=== PATIENT | male | born 1995 | race Caucasian/White ===

== ENCOUNTER 2017-03-11 18:16 | Emergency (ER) | payer OTHER ==
[~2017-03-11] VITALS: Ht 180.3 cm; Wt 81.7 kg
[~2017-03-11 18:16] MED LIST: AMOXICILLIN500 M1 PO; KEFLEX500 MG PO; MEDROL DOSPAK21 TA1 PO; NOHOMEMEDICATIONS; NORCO 5-325 TA1 EACH PO; TESSALON PERLE100 M1 PO; TRIAMCINOLONE A80 G2 TOP; ULTRAM 50MG TAB50 MG PO; ZPAK PO
[2017-03-11] MEDS ORDERED: ZOFRAN4 MG PO (18:57)
[2017-03-11 19:15] VITALS: BP 103/63
== END 2017-03-11 19:16 | disposition home or self-care (01) ==
LOC: M.ERS 18:16
DX: A08.4 Viral intestinal infection, unspecified (principal)

== ENCOUNTER 2017-10-24 09:15 | Emergency (ER) | payer OTHER ==
[~2017-10-24] VITALS: Ht 180.3 cm; Wt 85.3 kg
[~2017-10-24 09:15] MED LIST changes: +ZOFRAN4 MG PO
[2017-10-24 09:20] VITALS: BP 131/90
[2017-10-24] MEDS ORDERED: NORCO 5-325 TA1 EACH PO (09:30)
[2017-10-24] MEDS ORDERED: AMOXICILLIN 50500 MG PO (09:30)
== END 2017-10-24 09:52 | disposition home or self-care (01) ==
LOC: M.ERS 09:15
DX: K04.7 Periapical abscess without sinus (principal); F17.210 Nicotine dependence, cigarettes, uncomplicated

== ENCOUNTER 2017-11-29 22:33 | Emergency (ER) | payer OTHER ==
[~2017-11-29] VITALS: Ht 180.3 cm; Wt 86.2 kg
[~2017-11-29 22:33] MED LIST changes: +AMOXICILLIN 50500 MG PO
[2017-11-29] MEDS ORDERED: ROBAXIN500 MG PO (23:39)
[2017-11-29 23:49] VITALS: BP 116/62
== END 2017-11-29 23:51 | disposition home or self-care (01) ==
LOC: M.ERS 22:33
DX: S00.93XA Contusion of unspecified part of head, initial encounter (principal); S10.93XA Contusion of unspecified part of neck, initial encounter; F17.210 Nicotine dependence, cigarettes, uncomplicated; Y04.2XXA Assault by strike against or bumped into by another person, initial encounter; Y92.89 Other specified places as the place of occurrence of the external cause; Y93.89 Activity, other specified; Y99.8 Other external cause status

== ENCOUNTER 2018-03-08 12:03 | Emergency (ER) | payer OTHER ==
[~2018-03-08] VITALS: Ht 180.3 cm; Wt 90.7 kg
[~2018-03-08 12:03] MED LIST changes: +ROBAXIN500 MG PO
[2018-03-08 14:17] LABS: ABSOLUTE LYMPHOCYTES 0.7 thou/uL (0.8-5.3); ABSOLUTE MONOCYTES 0.5 thou/uL (0.0-1.2); ABSOLUTE NEUTROPHILS 3.3 thou/uL (1.6-8.1); BASOPHILS 0.5 %; EOSINOPHILS 0.5 %; HEMATOCRIT 44.1 % (42.0-52.0); HEMOGLOBIN 15.2 gm/dL (14.0-18.0); LYMPHOCYTES 14.8 %; MCH 30.8 pg (26.0-34.0); MCHC 34.5 g/dL (28.0-37.0); MCV 89.2 fL (80.0-100.0); MONOCYTES 11.5 %; MPV 9.6 fl. (7.2-11.1); NUCLEATED RBCS 0 /100WBC; PLATELET COUNT* 150 thou/uL (150-400); POLYS 72.7 %; RBC 4.95 mil/uL (4.50-6.00); RDW-CV 13.2 % (10.5-14.5); WBC 4.6 thou/uL (4.0-11.0)
[2018-03-08 14:20] LABS: URINE BLOOD NEGATIVE (Negative); URINE CLARITY CLEAR; URINE COLOR YELLOW; URINE GLUCOSE-RANDOM NEGATIVE (Negative); URINE LEUKOCYTES-REFLEX NEGATIVE (Negative); URINE NITRITE-REFLEX NEGATIVE (Negative); URINE PROTEIN NEGATIVE (Negative); URINE SPECIFIC GRAVITY 1.015 (1.005-1.030); URINE UROBILINOGEN 0.2 E.U./dl (0.2-1.0)
[2018-03-08 14:22] LABS: ACETEST (KETONE CONFIRMATORY) Large (Negative); ICTOTEST (BILI CONFIRMATORY) Negative (Negative); URINE BILIRUBIN 1+ (Negative); URINE KETONES 3+ (Negative)
[2018-03-08 14:35] LABS: CREATININE 1.1 mg/dL (0.6-1.3); POTASSIUM 3.3 mmol/L (3.5-5.1)
[2018-03-08 14:39] LABS: ALBUMIN 3.9 g/dL (3.4-5.0); TOTAL BILIRUBIN 1.3 mg/dL (<0.1-1.0); TOTAL PROTEIN 7.6 g/dL (6.4-8.2)
[2018-03-08] MEDS ORDERED: ZOFRAN4 MG PO (14:57)
[2018-03-08 15:05] VITALS: BP 118/60
== END 2018-03-08 15:07 | disposition home or self-care (01) ==
LOC: M.ERS 12:03
PROVIDERS: Nurse Practitioner Family
DX: R11.2 Nausea with vomiting, unspecified (principal); R19.7 Diarrhea, unspecified; R10.13 Epigastric pain; R10.84 Generalized abdominal pain; R10.33 Periumbilical pain; F17.210 Nicotine dependence, cigarettes, uncomplicated

== ENCOUNTER 2018-10-18 13:42 | Emergency (ER) | payer OTHER ==
[~2018-10-18] VITALS: Ht 182.9 cm; Wt 91.6 kg
[~2018-10-18 13:42] MED LIST changes: +NORCO 5-325 TA1 EAC1 PO
[2018-10-18 15:14] VITALS: BP 127/68
== END 2018-10-18 15:14 | disposition home or self-care (01) ==
LOC: M.ERS 13:42
DX: S62.316A Displaced fracture of base of fifth metacarpal bone, right hand, initial encounter for closed fracture (principal); F17.210 Nicotine dependence, cigarettes, uncomplicated; X58.XXXA Exposure to other specified factors, initial encounter; Y92.89 Other specified places as the place of occurrence of the external cause; Y93.89 Activity, other specified; Y99.8 Other external cause status

== ENCOUNTER 2019-03-01 14:17 | Emergency (ER) | payer OTHER ==
[~2019-03-01] VITALS: Ht 180.3 cm; Wt 90.7 kg
[2019-03-01 15:01] LABS: INFLUENZA A ANTIGEN Negative (Negative); INFLUENZA B ANTIGEN Negative (Negative)
[2019-03-01] MEDS ORDERED: KEFLEX500 M1 PO (15:17)
[2019-03-01 15:33] VITALS: BP 120/78
== END 2019-03-01 15:34 | disposition home or self-care (01) ==
LOC: M.ERS 14:17
PROVIDERS: Emergency Medicine Emergency Medical Services
DX: J02.0 Streptococcal pharyngitis (principal); F17.210 Nicotine dependence, cigarettes, uncomplicated; Z98.890 Other specified postprocedural states

== ENCOUNTER 2019-03-21 03:03 | Emergency (ER) | payer OTHER ==
[~2019-03-21] VITALS: Ht 180.3 cm; Wt 97.5 kg
[~2019-03-21 03:03] MED LIST changes: +KEFLEX500 M1 PO
[2019-03-21] MEDS ORDERED: LORCET 5-325 M1 EACH PO (03:22)
[2019-03-21] MEDS ORDERED: PENICILLIN VK250 MG PO (03:22)
[2019-03-21 03:31] VITALS: BP 150/96
== END 2019-03-21 03:33 | disposition home or self-care (01) ==
LOC: M.ERS 03:03
DX: K02.9 Dental caries, unspecified (principal); F17.210 Nicotine dependence, cigarettes, uncomplicated

== ENCOUNTER 2019-04-07 19:55 | Emergency (ER) | payer OTHER ==
[~2019-04-07] VITALS: Ht 182.9 cm; Wt 95.3 kg
[~2019-04-07 19:55] MED LIST changes: +LORCET 5-325 M1 EACH PO; +PENICILLIN VK250 MG PO
[2019-04-07] MEDS ORDERED: PENICILLIN VK250 MG PO (20:06)
[2019-04-07] MEDS ORDERED: CLEOCIN HCL150 MG PO (21:23)
[2019-04-07] MEDS ORDERED: MEDROLDOSEPACK PO (21:23)
[2019-04-07 21:58] VITALS: BP 126/71
== END 2019-04-07 21:59 | disposition home or self-care (01) ==
LOC: M.ERS 19:55
DX: J03.90 Acute tonsillitis, unspecified (principal); F17.210 Nicotine dependence, cigarettes, uncomplicated

== ENCOUNTER 2019-05-31 08:53 | Emergency (ER) | payer OTHER ==
[~2019-05-31] VITALS: Ht 182.9 cm; Wt 90.7 kg
[~2019-05-31 08:53] MED LIST changes: +CLEOCIN HCL150 MG PO; +MEDROLDOSEPACK PO
[2019-05-31 09:57] LABS: ABSOLUTE BASOPHILS 0.1 thou/uL (0.0-0.2); ABSOLUTE EOSINOPHILS 0.1 thou/uL (0.0-0.7); ABSOLUTE LYMPHOCYTES 1.9 thou/uL (0.8-5.3); ABSOLUTE MONOCYTES 0.8 thou/uL (0.0-1.2); BASOPHILS 0.7 %; EOSINOPHILS 1.7 %; HEMATOCRIT 40.1 % (42.0-52.0); LYMPHOCYTES 27.3 %; MCH 30.5 pg (26.0-34.0); MCHC 34.8 g/dL (28.0-37.0); MCV 87.8 fL (80.0-100.0); MONOCYTES 11.1 %; MPV 9.9 fl. (7.2-11.1); NUCLEATED RBCS 0 /100WBC; PLATELET COUNT* 150 thou/uL (150-400); POLYS 59.2 %; RBC 4.57 mil/uL (4.50-6.00); WBC 6.8 thou/uL (4.0-11.0)
[2019-05-31 10:04] LABS: POTASSIUM 3.6 mmol/L (3.5-5.1)
[2019-05-31 12:25] VITALS: BP 117/72
== END 2019-05-31 12:25 | disposition short-term general hospital (02) ==
LOC: M.ERS 08:53
PROVIDERS: Personal Emergency Response Attendant
DX: K04.7 Periapical abscess without sinus (principal); M27.2 Inflammatory conditions of jaws; F17.210 Nicotine dependence, cigarettes, uncomplicated

== ENCOUNTER 2019-07-19 12:20 | Emergency (ER) | payer OTHER ==
[~2019-07-19] VITALS: Ht 180.3 cm; Wt 87.1 kg
[2019-07-19] MEDS ORDERED: DOXYCYCLINE 10100 MG PO (12:58)
[2019-07-19 13:04] VITALS: BP 140/69
== END 2019-07-19 13:05 | disposition home or self-care (01) ==
LOC: M.ERS 12:20
DX: L73.9 Follicular disorder, unspecified (principal); R59.0 Localized enlarged lymph nodes; F17.210 Nicotine dependence, cigarettes, uncomplicated

== ENCOUNTER 2019-09-01 12:25 | Emergency (ER) | payer OTHER ==
[~2019-09-01] VITALS: Ht 180.3 cm; Wt 88.5 kg
[~2019-09-01 12:25] MED LIST changes: +DOXYCYCLINE 10100 MG PO
[2019-09-01 13:43] VITALS: BP 137/79
--- NOTE | 2019-09-02 13:27 | EKG ---
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
== END 2019-09-01 13:35 | disposition home or self-care (01) ==
LOC: M.ERS 12:25
DX: R07.89 Other chest pain (principal); F17.210 Nicotine dependence, cigarettes, uncomplicated

== ENCOUNTER 2020-01-02 14:23 | Emergency (ER) | payer OTHER ==
[~2020-01-02] VITALS: Ht 180.3 cm; Wt 93.0 kg
[2020-01-02] MEDS ORDERED: MELOXICAM15 MG PO (14:42)
[2020-01-02] MEDS ORDERED: AMOXICILLIN 50500 MG PO (14:42)
[2020-01-02 14:54] VITALS: BP 146/86
== END 2020-01-02 14:55 | disposition home or self-care (01) ==
LOC: M.ERS 14:23
DX: K02.9 Dental caries, unspecified (principal); F17.210 Nicotine dependence, cigarettes, uncomplicated

== ENCOUNTER 2020-02-14 11:18 | Emergency (ER) | payer OTHER ==
[~2020-02-14] VITALS: Ht 180.3 cm; Wt 92.1 kg
[~2020-02-14 11:18] MED LIST changes: +MELOXICAM15 MG PO
[2020-02-14 12:28] LABS: INFLUENZA A ANTIGEN Negative (Negative); INFLUENZA B ANTIGEN Negative (Negative)
[2020-02-14 13:12] VITALS: BP 128/67
== END 2020-02-14 13:15 | disposition home or self-care (01) ==
LOC: M.ERS 11:18
PROVIDERS: Emergency Medicine
DX: J02.0 Streptococcal pharyngitis (principal); Z20.828 Contact with and (suspected) exposure to other viral communicable diseases; F17.210 Nicotine dependence, cigarettes, uncomplicated

== ENCOUNTER 2020-05-07 12:16 | Emergency (ER) | payer OTHER ==
[~2020-05-07] VITALS: Ht 180.3 cm; Wt 93.0 kg
[2020-05-07] MEDS ORDERED: PREDNISONE 20 M20 MG PO (13:19)
[2020-05-07] MEDS ORDERED: VENTOLIN HFA 1818 GM INH (13:19)
[2020-05-07 13:41] VITALS: BP 111/51
--- NOTE | 2020-05-07 15:36 | EKG ---
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 05/07/20 1536 125 50 Donell Cain MD, FAC /EPI
== END 2020-05-07 13:42 | disposition home or self-care (01) ==
LOC: M.ERS 12:16
DX: J45.901 Unspecified asthma with (acute) exacerbation (principal); F17.210 Nicotine dependence, cigarettes, uncomplicated

== ENCOUNTER 2020-10-20 17:40 | Emergency (ER) | payer OTHER ==
[~2020-10-20] VITALS: Ht 180.3 cm; Wt 91.6 kg
[~2020-10-20 17:40] MED LIST changes: +PREDNISONE 20 M20 MG PO; +VENTOLIN HFA 1818 GM INH
[2020-10-20 22:15] VITALS: BP 129/81
== END 2020-10-20 22:15 | disposition home or self-care (01) ==
LOC: M.ERS 17:40
DX: R51.9 Headache, unspecified (principal); Z20.822 Contact with and (suspected) exposure to COVID-19; J45.909 Unspecified asthma, uncomplicated; F17.210 Nicotine dependence, cigarettes, uncomplicated

== ENCOUNTER 2021-04-02 11:19 | Emergency (ER) | payer OTHER ==
[~2021-04-02] VITALS: Ht 180.3 cm; Wt 93.0 kg
[2021-04-02] MEDS ORDERED: ONDANSETRON ODT4 MG PO (12:40)
[2021-04-02] MEDS ORDERED: BUTALB-APAP-CA1 EACH PO (12:40)
[2021-04-02 13:00] VITALS: BP 128/76
== END 2021-04-02 13:00 | disposition home or self-care (01) ==
LOC: M.ERS 11:19
DX: H61.23 Impacted cerumen, bilateral (principal); R51.9 Headache, unspecified; J45.909 Unspecified asthma, uncomplicated; F17.210 Nicotine dependence, cigarettes, uncomplicated; Z98.890 Other specified postprocedural states